=== PATIENT | male | born 1970 | race American Indian/Alaskan Native ===

== ENCOUNTER 2018-04-28 10:08 | Emergency (ER) | payer OTHER ==
[2018-04-28 10:48] VITALS: BP 140/103
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
[2018-04-28] MEDS ORDERED: TORADOL PO ONE (12:19)
== END 2018-04-28 11:30 | disposition home or self-care (01) ==
LOC: ED 10:08
DX: S39.012A Strain of muscle, fascia and tendon of lower back, initial encounter (principal); F17.200 Nicotine dependence, unspecified, uncomplicated; V49.49XA Driver injured in collision with other motor vehicles in traffic accident, initial encounter; Y93.89 Activity, other specified; Y92.89 Other specified places as the place of occurrence of the external cause; Y99.8 Other external cause status
CPT/HCPCS: 99281